=== PATIENT | female | born 1980 | race African-American/Black ===

== ENCOUNTER 2018-06-06 12:16 | Emergency (ER) | payer OTHER | END 2018-06-06 13:00 | disposition home or self-care (01) | LOC: FTE 12:16 | DX: S60.562A Insect bite (nonvenomous) of left hand, initial encounter (principal); W57.XXXA Bitten or stung by nonvenomous insect and other nonvenomous arthropods, initial encounter; Y92.9 Unspecified place or not applicable | CPT/HCPCS: 99283; Z7502 ==

== ENCOUNTER 2018-07-27 12:22 | Emergency (ER) | payer OTHER ==
[2018-07-27] MEDS: DEXAMETHASONE 4 MG TAB PO (13:30)
[2018-07-27] MEDS: ALBUTEROL 0.083% (NEB) 2.5 MG/3 ML AMP HHN (13:49)
[2018-07-27] MEDS: IBUPROFEN 600 MG TAB PO (14:55)
== END 2018-07-27 15:15 | disposition home or self-care (01) ==
LOC: FTE 12:22
DX: J45.901 Unspecified asthma with (acute) exacerbation (principal); M62.838 Other muscle spasm; R40.2412 Glasgow coma scale score 13-15, at arrival to emergency department
CPT/HCPCS: 94664; 99283

== ENCOUNTER 2018-09-30 11:52 | Emergency (ER) | payer SELFPAY, OTHER ==
[2018-09-30] MEDS: IBUPROFEN 800 MG TAB PO (12:22)
[2018-09-30] MEDS: ACETAMINOPHEN 500 MG TAB PO (12:22)
[2018-09-30 13:22] LABS: MONOTEST Negative (NEG)
== END 2018-09-30 13:59 | disposition home or self-care (01) ==
LOC: FTE 11:52
DX: J02.9 Acute pharyngitis, unspecified (principal); J45.909 Unspecified asthma, uncomplicated; Z95.0 Presence of cardiac pacemaker
CPT/HCPCS: 86308; 87400; 87880; 99283

== ENCOUNTER 2019-03-26 17:38 | Emergency (ER) | payer OTHER ==
[2019-03-26 20:17] LABS: ADD MAN DIFF? NO
[2019-03-26 20:19] LABS: EOSINOPHILS # 0.1 10^3/ul (0.0-0.5); HEMATOCRIT 35.9 % (37.0-47.0); HEMOGLOBIN 11.7 g/dl (12.0-16.0); LYMPHOCYTES # 1.9 10^3/ul (0.8-2.9); LYMPHOCYTES % 46.8 % (15.0-51.0); MEAN CORPUSCULAR HGB CONC 32.6 g/dl (32.0-37.0); MEAN CORPUSCULAR VOLUME 89.1 fl (82.0-101.0); MONOCYTE # 0.3 10^3/ul (0.3-0.9); MONOCYTES % 8.1 % (0.0-11.0); NEUTROPHIL # 1.6 10^3/ul (1.6-7.5); NEUTROPHILS % 40.8 % (39.0-77.0); PLATELET COUNT 340 10^3/UL (140-415); RED BLOOD COUNT 4.03 10^6/ul (4.20-5.40); RED CELL DISTRIBUTION WIDTH 15.2 % (11.5-14.5)
[2019-03-26 20:26] LABS: ALANINE AMINOTRANSFERASE 19 IU/L (13-69); ALBUMIN 4.4 g/dl (3.3-4.9); ALKALINE PHOSPHATASE 54 IU/L (42-121); ANION GAP 10 (5-13); ASPARTATE AMINO TRANSFERASE 31 IU/L (15-46); BILIRUBIN,INDIRECT 0.6 mg/dl (0-1.1); BILIRUBIN,TOTAL 0.6 mg/dl (0.2-1.3); BLOOD UREA NITROGEN 9 mg/dl (7-20); CALCIUM 9.8 mg/dl (8.4-10.2); CARBON DIOXIDE 25 mmol/L (21-31); CHLORIDE 105 mmol/L (97-110); Estimated GFR > 60 mL/min (>60); GLUCOSE 89 mg/dl (70-220); LIPASE 22 U/L (23-300); POTASSIUM 4.2 mmol/L (3.5-5.1); SODIUM 140 mmol/L (135-144); TOTAL PROTEIN 8.8 g/dl (6.1-8.1)
[2019-03-26] MEDS: ASPIRIN 81 MG TAB PO (20:27)
[2019-03-26] MEDS: morphine 2 MG INJ IV ×2 (20:28→21:54)
[2019-03-26 20:38] LABS: TROPONIN-I < 0.012 ng/ml (0.000-0.120)
[2019-03-26 23:57] LABS: TROPONIN-I < 0.012 ng/ml (0.000-0.120)
== END 2019-03-27 00:28 | disposition home or self-care (01) ==
LOC: E/R 03-27 00:28
DX: R07.9 Chest pain, unspecified (principal); I25.2 Old myocardial infarction
CPT/HCPCS: 36415; 71045; 80053; 83690; 84484; 84703; 85025; 85378; 93005; 96374; 96375; 99285-25